=== PATIENT | male | born 1970 | race African-American/Black ===

== ENCOUNTER 2018-04-17 12:29 | Emergency (ER) | payer OTHER ==
[~2018-04-17] VITALS: Ht 188 cm; Wt 82.4 kg
[2018-04-17 12:58] VITALS: BP 171/92; PULSE 72; RESP 18; Ht 188 cm; Wt 82.4 kg
[2018-04-17] MEDS ORDERED: CYCL5TAB PO (14:55)
--- NOTE | 2018-04-17 15:01 | ERD ---
ER Documentation Chief Complaint Chief Complaint back spasms since yesterday HPI 48-year-old male presents with history of back spasm. States that the spasms started yesterday when he was at work and that pain has been on and off. States the quality feels like a tightness in the paraspinous thoracic region. Denies any injury. States that he had a similar episode one year ago and it self resolved. Pain is intermittent. Taking Tylenol for it but is not resolved. Denies any chest pain, diaphoresis, shortness of breath, incontinence, saddle numbness, weakness in legs, numbness or tingling. Allergic to aspirin and ibuprofen. No medical history. ROS All systems reviewed and are negative except as per history of present illness. Medications Home Meds Active Scripts Cyclobenzaprine Hcl* (Cyclobenzaprine Hcl*) 5 Mg Tablet, 5-10 MG PO TID for back pain, #20 TAB Prov:FLORINDA ROMERO 04/17/18 Physical Exam Vitals Vital Signs Date Temp Pulse Resp B/P (MAP) Pulse Ox O2 O2 Flow FiO2 Time Delivery Rate 04/17/18 97.1 72 18 171/92 100 12:58 (118) Physical Exam Const: No acute distress Head: Atraumatic Eyes: Normal Conjunctiva ENT: Normal External Ears, Nose and Mouth. Neck: Full range of motion. No meningismus. Resp: Clear to auscultation bilaterally Cardio: Regular rate and rhythm, no murmurs Abd: Soft, non tender, non distended. Normal bowel sounds Skin: No petechiae or rashes Back: No midline or flank tenderness. No bony deformities or step-offs. No edema or erythema noted. Limited flexion. Ext: No cyanosis, or edema. 5 out of 5 strength in lower extremities. Distal sensation intact. No saddle numbness. Neur: Awake and alert Psych: Normal Mood and Affect Procedures/MDM 48-year-old male presents with history of back spasm. States that the spasms started yesterday when he was at work and that pain has been on and off. States the quality feels like a tightness in the paraspinous thoracic region. Denies any injury. States that he had a similar episode one year ago and it self resolved. Pain is intermittent. Taking Tylenol for it but is not resolved. Denies any chest pain, diaphoresis, shortness of breath, incontinence, saddle numbness, weakness in legs, numbness or tingling. I have low suspicion for epidural abscess, cauda equina, abdominal aortic aneurysm, pyelonephritis, aortic dissection, spinal fracture, or other emergent conditions based on patient history and exam findings. Findings consistent with muscle spasm. Patient given rx for cyclobenzaprine. Patient discharged with strict ER precautions. Patient advised to follow up with PMD. All questions answered at discharge. Departure Diagnosis: Primary Impression: Back pain Back pain location: thoracic back pain Chronicity: acute Back pain laterality: bilateral Qualified Codes: M54.6 - Pain in thoracic spine Condition: Stable Patient Instructions: Back Pain (Acute Or Chronic) Referrals: [facility] YOU HAVE RECEIVED A MEDICAL SCREENING EXAM AND THE RESULTS INDICATE THAT YOU DO NOT HAVE A CONDITION THAT REQUIRES URGENT TREATMENT IN THE EMERGENCY DEPARTMENT. FURTHER EVALUATION AND TREATMENT OF YOUR CONDITION CAN WAIT UNTIL YOU ARE SEEN IN YOUR DOCTORS OFFICE WITHIN THE NEXT 1-2 DAYS. IT IS YOUR RESPONSIBILITY TO MAKE AN APPOINTMENT FOR FOLOW-UP CARE. IF YOU HAVE A PRIMARY DOCTOR --you should call your primary doctor and schedule an appointment IF YOU DO NOT HAVE A PRIMARY DOCTOR YOU CAN CALL OUR PHYSICIAN REFERRAL HOTLINE AT IF YOU CAN NOT AFFORD TO SEE A PHYSICIAN YOU CAN CHOSE FROM THE FOLLOWING [facility] [address] [facility] [facility] [address] [facility]. [facility] [address] [facility]. [facility] [address] [facility] [facility] [address] [facility]. [facility]. [address] Additional Instructions: FOLLOW UP WITH YOUR PRIMARY CARE PHYSICIAN TOMORROW.Return to this facility if you are not improving as expected. FLORINDA RMOERO Apr 17, 2018 15:01
== END 2018-04-17 15:34 | disposition home or self-care (01) ==
LOC: FTE 12:29
DX: M54.6 Pain in thoracic spine (principal)
CPT/HCPCS: 99283